=== PATIENT | female | born 1975 | race Hispanic/Latino ===

== ENCOUNTER 2017-10-29 20:21 | Inpatient (IN) | payer BC ==
--- NOTE | 2017-10-29 20:57 | ED PDOC ---
Arrival/HPI - General Time Seen by Provider: 10/29/17 20:29 Historian: Patient, Family (mother) - History of Present Illness Narrative History of Present Illness (Text): 10/29/17 20:53 42 year old female, whose past medical history includes asthma, who presents to the Emergency department with ETOH abuse. Patient's mother states she couldn't get ahold of the patient and went to check on her. When the patient did not open the door, patient's mother called the police. Patient admits to drinking alcohol today. Full HPI/ROS limited due to alcohol intoxication. Time/Duration: Prior to Arrival Symptom Onset: Gradual Symptom Course: Unchanged Activities at Onset: Light Context: Home Past Medical History - Provider Review Nursing Documentation Reviewed: Yes Family/Social History - Physician Review Nursing Documentation Reviewed: Yes Family/Social History: Unknown Family HX Allergies/Home Meds Allergies/Adverse Reactions: Allergies No Known Allergies Allergy (Verified 10/29/17 20:37) Home Medications: Home Meds Medication Instructions Recorded Confirmed LORazepam [Ativan] 1 mg PO PRN PRN 10/29/17 10/29/17 Unknown Med 10/29/17 Review of Systems - Review of Systems Systems not reviewed;Unavailable: Intoxicated Physical Exam - Physical Exam Narrative Physical Exam (Text): 10/29/17 20:58 Gen: VS reviewed, confused. alert, well nourished, nontoxic, mild distress. ENT: normal pharynx. Eye: EOMI, PERRL. Neck: no JVD, supple, no adenopathy. CV: tachycardiac. regular rate, regular rhythm, no rubs, no murmur, no gallops, S1, S2, pulses equal and strong. Pulm: no distress, clear to auscultation, no wheeze, no rhonchi, breath sounds equal, no rales. Abd: soft, nontender, no guarding, no rebound, no rigidity, normal bowel sounds. Ext: no edema. Skin: good color, no rash, no cyanosis. Psych: limited secondary to confusion. Neuro: moves all 4 extremities. CN2-12 intact grossly, motor intact, sensation intact. Vital Signs Reviewed: Yes Vital Signs Temp Pulse Resp BP Pulse Ox 10/30/17 03:15 109 H 12 133/83 92 L 10/30/17 01:29 113 H 16 135/84 90 L 10/29/17 23:31 118 H 18 139/81 90 L 10/29/17 21:08 98.8 F 10/29/17 21:00 98.8 F 10/29/17 20:54 98.8 F 139 H 13 148/86 90 L Temperature: Afebrile Blood Pressure: Normal Pulse: Tachycardic Respiratory Rate: Normal Appearance: Positive for: Well-Appearing Pain Distress: None Mental Status: Positive for: Alert and Oriented X 3, Confused Medical Decision Making ED Course and Treatment: 10/29/17 21:02 Impression: 42 year old female presents to the Emergency department for ETOH abuse. Plan: -- EKG -- Labs -- Sodium Chloride -- POC Urine Test -- Reassess and disposition Progress Notes: 10/30/17 03:05 patient is more awake and alert, speech is clear, patient currently exhibits coherent thoughts. patient is still tachycardic despite ivf, will admit for observation and continuted supportive care 10/30/17 03:30 0330: admit accepted by dr. neal, it is agreed to extend the workup in the ED to include dimer, cpk, ct head. if dimer positive will follow up with cta to rule out pe. 10/30/17 04:56 CT Head reviewed, shows: IMPRESSION: No acute findings. 10/30/17 05:04 CT Angio Chest reviewed, shows: IMPRESSION: Normal chest CTA. No pulmonary embolism. - Lab Interpretations Lab Results: 10/29/17 21:18 10/29/17 21:18 Lab Results 10/30/17 03:20: D-Dimer, Quantitative 368 H 10/29/17 22:54: Urine Opiates Screen Negative, Urine Methadone Screen Negative, Ur Barbiturates Screen Negative, Ur Phencyclidine Scrn Negative, Ur Amphetamines Screen Negative, U Benzodiazepines Scrn Negative, U Oth Cocaine Metabols Negative, U Cannabinoids Screen Negative 10/29/17 21:18: Total Creatine Kinase 89 10/29/17 21:18: Sodium 144, Potassium 3.6, Chloride 103, Carbon Dioxide 20 L, Anion Gap 25 H, BUN 13, Creatinine 0.8, Est GFR ( Amer) > 60, Est GFR ( Non-Af Amer) > 60, Random Glucose 124 H, Calcium 8.7, Total Bilirubin 0.6, AST 42 H, ALT 32, Alkaline Phosphatase 83, Total Protein 8.8 H, Albumin 4.7, Globulin 4.1, Albumin/Globulin Ratio 1.1 10/29/17 21:18: Salicylates < 1 L, Acetaminophen < 10.0 L 10/29/17 21:18: TSH 3rd Generation 4.50, Alcohol, Quantitative 316 H* 10/29/17 21:18: Magnesium 2.5 H 10/29/17 21:18: WBC 10.1, RBC 5.73, Hgb 16.1 H, Hct 45.7, MCV 79.8 L, MCH 28.1, MCHC 35.2, RDW 14.7 H, Plt Count 416, MPV 10.0, Gran % 69.3 H, Lymph % (Auto) 24.5, [place] % (Auto) 5.8, Eos % (Auto) 0.1 L, Baso % (Auto) 0.3, Gran # 7.02 H, Lymph # (Auto) 2.5, [place] # (Auto) 0.6, Eos # (Auto) 0.0, Baso # (Auto) 0.03 - RAD Interpretation Radiology Orders: 10/30/17 03:19 HEAD W/O CONTRAST [CT] Stat 10/30/17 04:03 ANGIO CHEST PE PROTOCOL [CT] Stat - EKG Interpretation EKG Interpretation (Text): 10/29/17 21:03 2102: sinus tachycardia at 134 bpm, irbbb, prolonged qt, no acute sttw abn 10/29/17 23:49 radiation monitor: sinus tachy at 119 bpm 10/30/17 04:55 EXAM: CT Head Without Intravenous Contrast EXAM DATE/TIME: 10/30/2017 3:19 AM CLINICAL HISTORY: 42 years old, female; Signs and symptoms; Altered mental status/memory loss and other: ETOH; Additional info: Altered mentation TECHNIQUE: Axial computed tomography images of the head/brain without intravenous contrast. All CT scans at this facility use at least one of these dose optimization techniques: automated exposure control; mA and/or kV adjustment per patient size (includes targeted exams where dose is matched to clinical indication); or iterative reconstruction. COMPARISON: No relevant prior studies available. FINDINGS: Brain: No acute findings. No hemorrhage. No significant white matter disease. No edema. Ventricles: No acute findings. No ventriculomegaly. Bones/joints: No acute findings. No acute fracture. Soft tissues: No acute findings. Sinuses: No acute findings. No acute sinusitis. Mastoid air cells: No acute findings. No mastoid effusion. IMPRESSION: No acute findings. Interpreted by ED Physician: Yes - Medication Orders Current Medication Orders: Sodium Chloride (Sodium Chloride 0.9%) 1,000 mls @ 150 mls/hr IV .Q6H40M [facility] Last Admin: 10/29/17 21:21 Dose: 150 mls/hr eMAR Start Stop Document 10/29/17 21:21 CNR (Rec: 10/29/17 21:21 CNR [id number]) Intravenous Solution Start Date 10/29/17 Start Time 21:21 Sodium Chloride (Sodium Chloride 0.9%) 1,000 mls @ 150 mls/hr IV .Q6H40M [facility] Last Admin: 10/29/17 23:30 Dose: 150 mls/hr eMAR Start Stop Document 10/29/17 23:30 CNR (Rec: 10/29/17 23:30 CNR [id number]) Intravenous Solution Start Date 10/29/17 Start Time 23:30 - Scribe Statement The provider has reviewed the documentation as recorded by the Scribliat Yarbrough All medical record entries made by the Patrickibliat were at my direction and personally dictated by me. I have reviewed the chart and agree that the record accurately reflects my personal performance of the history, physical exam, medical decision making, and the department course for this patient. I have also personally directed, reviewed, and agree with the discharge instructions and disposition. Disposition/Present on Arrival - Present on Arrival Any Indicators Present on Arrival: No - Disposition Have Diagnosis and Disposition been Completed?: Yes Diagnosis: Alcohol intoxication, Tachycardia Disposition: HOSPITALIZED Disposition Time: 03:50 Patient Plan: Observation Patient Problems: Current Active Problems Problem Status Onset Alcohol intoxication Acute Tachycardia Acute Condition: STABLE
[2017-10-29] MEDS ORDERED: Sodium Chloride 0.9% 1,000 ML IV SCH ×2 (21:00→23:30)
[2017-10-29 21:32] LABS: BASO # 0.03 K/mm3 (0.0-2.0); BASO % 0.3 % (0.0-3.0); EOS % 0.1 % (1.5-5.0); GRAN # 7.02 (1.4-6.5); GRAN % 69.3 % (50.0-68.0); HEMOGLOBIN 16.1 g/dL (12.0-16.0); LYMPH # 2.5 (1.2-3.4); LYMPH % 24.5 % (22.0-35.0); MEAN CELL VOLUME 79.8 fl (80.0-105.0); MEAN CORPUSCULAR HEMOGLOBIN 28.1 pg (25.0-35.0); MEAN CORPUSCULAR HGB CONC 35.2 g/dl (31.0-37.0); MONO # 0.6 (0.1-0.6); MONO % 5.8 % (1.0-6.0); RBC 5.73 10^6/uL (3.5-6.1); RED CELL DISTRIBUTION WIDTH 14.7 % (11.5-14.5); WHITE BLOOD COUNT 10.1 10^3/ul (4.5-11.0)
[2017-10-29 21:41] LABS: ACETAMINOPHEN < 10.0 ug/ml (10.0-20.0); SALICYLATE < 1 mg/dL (2.0-20.0)
[2017-10-29 23:00] LABS: ALB/GLOB RATIO 1.1 (1.1-1.8); ALBUMIN 4.7 g/dL (3.0-4.8); ALT/SGPT 32 U/L (7-56); AST/SGOT 42 U/L (14-36); BLOOD UREA NITROGEN 13 mg/dL (7-21); CALCIUM 8.7 mg/dL (8.4-10.5); GFR NON-AFRICAN AMERICAN > 60
[2017-10-29 23:19] LABS: BARBITURATES, UR NEGATIVE (NEGATIVE); BENZODIAZEPINES, UR NEGATIVE (NEGATIVE); OPIATES, UR NEGATIVE (NEGATIVE); PHENCYCLIDINE, UR NEGATIVE (NEGATIVE)
--- NOTE | 2017-10-30 04:56 | CP.PCM.HP ---
History of Present Illness - History of Present Illness History of Present Illness: Kristofer Arguelles, PGY-1, Internal Medicine History and Physical for Dr. Barcenas CC: Alcohol Intoxication 42 year old female with past medical history of hyperlipidemia, anxiety, and asthma presents to the emergency department after being found intoxicated this yesterday afternoon. Mother is by bedside and reports that she called the patient who had not responded for 2 days. Mother found patient passed out in her home and called 911. Patient was brought to the emergency department subsequently. On presentation, patient does not remember the sequence of events that led to her arrival at the hospital. Patient reports that does not remember how many drinks she had yesterday and that the last thing she remembered was getting into EMS. Patient reports heart palpitations, shortness of breath, and dizziness. Patient reports not having thought to hurt herself or others. Patient denies chest pain, wheezing, cough, headache, fever, dysuria, hematuria , numbness/tingling, abdominal pain, nausea, vomiting, constipation, diarrhea. 12-point ROS was negative except for what was mentioned above. PMH: as stated above PSH: 2 pneumothorax with chest tube placement Allergies: NKDA FMHx: father from kidney cancer. also had a history of CABG. Mother has a history of diabetes, hypertension, and hypothyroidism. Mother is living. Social history: Patient denies smoking or recreational drug use. Patient reports binge drinking once a week. PMD: Dr. Wei Pharm: [facility] [address] Insurance: [employer] Present on Admission - Present on Admission Any Indicators Present on Admission: No History of DVT/PE: No History of Uncontrolled Diabetes: No Review of Systems - Constitutional Constitutional: absent: Chills, Fever, Headache - EENT Eyes: absent: Change in Vision Ears: absent: Decreased Hearing - Cardiovascular Cardiovascular: Palpitations. absent: Chest Pain, Dyspnea on Exertion - Respiratory Respiratory: Dyspnea. absent: Cough - Gastrointestinal Gastrointestinal: absent: Abdominal Pain, Constipation, Diarrhea, Nausea, Vomiting - Genitourinary Genitourinary: absent: Change in Urinary Stream, Dysuria, Hematuria - Musculoskeletal Musculoskeletal: absent: Abnormal Gait - Neurological Neurological: Dizziness. absent: Numbness, Tingling, Vertigo - Psychiatric Psychiatric: Anxiety Past Patient History - Past Social History Smoking Status: Light Smoker < 10 Cigarettes Daily - PSYCHIATRIC Hx Psychophysiologic Disorder: Yes Hx Anxiety: Yes Hx Substance Use: No - SURGICAL HISTORY Hx Surgeries: No - ANESTHESIA Hx Anesthesia: Yes Meds Allergies/Adverse Reactions: Allergies Allergy/AdvReac Type Severity Reaction Status Date / Time No Known Allergies Allergy Verified 10/29/17 20:37 Physical Exam - Constitutional Appears: Well, Non-toxic, Agitated - Head Exam Head Exam: ATRAUMATIC, NORMOCEPHALIC - Eye Exam Eye Exam: EOMI, PERRL (pupils dilated) - ENT Exam ENT Exam: Mucous Membranes Moist - Respiratory Exam Respiratory Exam: Clear to Auscultation Bilateral, NORMAL BREATHING PATTERN - Cardiovascular Exam Cardiovascular Exam: Tachycardia, REGULAR RHYTHM, RRR - GI/Abdominal Exam GI & Abdominal Exam: Normal Bowel Sounds, Soft - Extremities Exam Extremities exam: Positive for: full ROM, normal inspection - Neurological Exam Neurological exam: Alert, CN II-XII Intact, Oriented x3 - Psychiatric Exam Psychiatric exam: Anxious - Skin Skin Exam: Dry, Intact, Normal Color Results - Vital Signs Recent Vital Signs: Last Vital Signs Temp 98.8 F 10/29/17 21:08 Pulse 109 H 10/30/17 03:15 Resp 12 10/30/17 03:15 BP 133/83 10/30/17 03:15 Pulse Ox 92 L 10/30/17 03:15 - Labs Result Diagrams: 10/29/17 21:18 10/29/17 21:18 - Impressions Impression: Sinus tachycardia, left posterior fascicular block Vent rate: 134 PO: 116 QRS:100 QTc:480 Assessment & Plan - Assessment and Plan (Free Text) Assessment: 42 year old female with past medical history of hyperlipidemia, anxiety, and asthma presents to the emergency department after being found intoxicated this yesterday afternoon. Patient will be admitted for tachycardia Plan: Alcoholic Intoxication -CIWA protocol initiated. -Head CT: no acute abnormalities -Alcohol serum stat, amylase, lipase, TSH, T4, lipid panel, PT/PTT ordered for evaluation of underlying disease. -Aspiration precautions -Intake and output as per alcohol withdrawal protocol -Neurocheck Q4 -Regular diet -Seizures precautions PRN -Banana bag, librium, clonidine, valium, haldol, lactated ringer at 125 cc/hr, multivitamin, thiamine, and trazodone given per alcohol withdrawal protocol. Respiratory distress 2/2 to asthma vs. panic attack -O2 stat: 92% on 2L NC -RR: 12 -Anion gap: 21 -Delta/delta: 9/4 -ABG shock panel ordered. -Duonebs PRN Sinus tachycardia 2/2 to alcohol withdrawal vs. anxiety -HR: 139 down to 109. -Patient to be placed on tele. -Patient complaining of heart palpitations. -EKG: sinus tachycardia at 134. -Repeat EKG. -Troponin level, TSH, T4 ordered. -Routine CBC, CMP -Dr. Swati Lazar, psychiatry, called for recommendations. Hemoconcentration -Hgb: 16.1 -IV lactated ringer fluid at 125cc/hr Elevated D-Dimer -D-dimer: 368 -CTA: no acute findings GI prophylaxis: protonix 40 mg daily DVT prophylaxis: lovenox 40 mg daily Patient plan discussed with Dr. Barcenas. - Date & Time Date: 10/30/17 Time: 05:32
[2017-10-30] MEDS ORDERED: Lactated Ringer's 1,000 ML IV SCH (06:00)
[2017-10-30] MEDS: Folic Acid 1 MG, Thiamine 100 MG, Multivitamin (MVI) 10 ML in Dextrose 5% In Water 1,00... IV SCH ×2 (06:29→19:45)
[2017-10-30 06:34] LABS: URINE BILIRUBIN NEGATIVE (NEGATIVE); URINE BLOOD MODERATE (NEGATIVE); URINE GLUCOSE (UA) NEGATIVE (NEGATIVE); URINE LEUKOCYTE ESTERASE NEGATIVE Leu/uL (NEGATIVE); URINE PROTEIN 100 mg/dL (<30 mg/dL); URINE UROBILINOGEN 0.2 E.U./dL (<1 E.U./dL)
[2017-10-30 06:37] LABS: URINE APPEARANCE SL CLOUDY (CLEAR); URINE COLOR YELLOW (YELLOW)
[2017-10-30 06:38] LABS: INR 1.16; PARTIAL THROMBOPLASTIN TIME 27.8 Seconds (25.1-36.5); PROTHROMBIN TIME 13.4 SECONDS (9.4-12.5)
[2017-10-30 06:42] LABS: HEMOGLOBIN 14.6 g/dL (12.0-16.0); MEAN CORPUSCULAR HEMOGLOBIN 27.8 pg (25.0-35.0); MEAN CORPUSCULAR HGB CONC 34.7 g/dl (31.0-37.0); MEAN PLATELET VOLUME 9.6 fl (7.0-11.0); RBC 5.26 10^6/uL (3.5-6.1); RED CELL DISTRIBUTION WIDTH 14.6 % (11.5-14.5); WHITE BLOOD COUNT 11.9 10^3/ul (4.5-11.0)
[2017-10-30 06:49] LABS: URINE WBC 0 - 2 /hpf (0-6)
[2017-10-30 06:50] LABS: URINE BACTERIA OCC (NEG); URINE EPITHELIAL CELLS 0 - 2 /hpf (0-5)
[2017-10-30 06:59] LABS: AMYLASE 69 U/L (35-125); BLOOD UREA NITROGEN 10 mg/dL (7-21); CALCIUM 7.9 mg/dL (8.4-10.5); GFR NON-AFRICAN AMERICAN > 60; LIPASE 130 U/L (23-300)
[2017-10-30 06:59] LABS: ARTERIAL BLOOD GAS HCO3 19.5 mmol/L (21-28); ARTERIAL BLOOD GAS O2 SAT 97.8 % (95-98); ARTERIAL BLOOD GAS PCO2 28 mm/Hg (35-45); ARTERIAL BLOOD GAS PH 7.45 (7.35-7.45); ARTERIAL BLOOD GAS TCO2 20.4 mmol.L (22-28)
[2017-10-30 07:05] LABS: TROPONIN I < 0.01 ng/mL
[2017-10-30 07:09] LABS: FREE T4 1.02 ng/dL (0.78-2.19)
[2017-10-30] MEDS: Albuterol-Ipratrop 3 mg / 0.5 (3 ml) UD IH SCH ×3 (08:03→20:11)
--- NOTE | 2017-10-30 08:21 | CT ---
Date of service: 10/30/2017 PROCEDURE: CT HEAD WITHOUT CONTRAST. HISTORY: altered mentation COMPARISON: None available. TECHNIQUE: Axial computed tomography images were obtained through the head/brain without intravenous contrast. Radiation dose: Total exam DLP = 935 mGy-cm. This CT exam was performed using one or more of the following dose reduction techniques: Automated exposure control, adjustment of the mA and/or kV according to patient size, and/or use of iterative reconstruction technique. FINDINGS: HEMORRHAGE: No intracranial hemorrhage. BRAIN: No mass effect or edema. No atrophy or chronic microvascular ischemic changes. VENTRICLES: Unremarkable. No hydrocephalus. CALVARIUM: Unremarkable. PARANASAL SINUSES: Unremarkable as visualized. No significant inflammatory changes. MASTOID AIR CELLS: Unremarkable as visualized. No inflammatory changes. OTHER FINDINGS: The report concurs with the preliminary [facility] report IMPRESSION: No acute findings
--- NOTE | 2017-10-30 08:24 | CT ---
Date of service: 10/30/2017 PROCEDURE: CT Chest with contrast (Pulmonary Angiogram) HISTORY: pulmonary embolism COMPARISON: None available. TECHNIQUE: Axial computed tomography images were obtained of the chest in the pulmonary arterial phase of enhancement. Coronal and sagittal reformatted images were created and reviewed. Intravenous contrast dose: 144 cc of Omni 350 Radiation dose: Total exam DLP = 396 mGy-cm. This CT exam was performed using one or more of the following dose reduction techniques: Automated exposure control, adjustment of the mA and/or kV according to patient size, and/or use of iterative reconstruction technique. FINDINGS: PULMONARY ARTERIES: Unremarkable. No pulmonary embolism. AORTA: No acute findings. No thoracic aortic aneurysm. LUNGS: Unremarkable. No nodule, mass or pulmonary consolidation. PLEURAL SPACES: Unremarkable. No effusion or pneumothorax. HEART: Unremarkable. No cardiomegaly. No significant pericardial effusion. LYMPH NODES: No lymphadenopathy. BONES, CHEST WALL: Unremarkable. No fracture or destructive lesion OTHER FINDINGS: The report concurs with the preliminary [facility] report IMPRESSION: Unremarkable CT pulmonary angiogram. No pulmonary embolus.
[2017-10-30 08:28] VITALS: BMI 30.1
[2017-10-30] MEDS ORDERED: Pneumococcal 23-Valent Vaccine IM ONE (08:28)
[2017-10-30] MEDS: Enoxaparin 40 mg Syringe SC SCH (09:18)
[2017-10-30 11:21] LABS: VENOUS BLOOD GAS PO2 51 mm/Hg (30-55); VENOUS BLOOD PH 7.45 (7.32-7.43)
--- NOTE | 2017-10-30 11:35 | CARD ---
APPROVED REPORT Date of service: 10/29/2017 EKG Measurement Heart [id number] <Conclusion> Sinus tachycardia Incomplete right bundle branch block Left posterior fascicular block Abnormal ECG
--- NOTE | 2017-10-30 13:32 | HP ---
Copied To: Ru Medellin MD Attending MD: Ru Medellin MD LOCATION: The patient is in [facility] in [place] in room 260, bed 1. HISTORY OF PRESENT ILLNESS: The patient was admitted this morning. She was found by her mother to be in an unresponsive state, due to overuse of alcohol. The patient has past history of anxiety and depression. She also has history of asthma. The patient was brought in by the ambulance to Emergency Room where she was evaluated by physician and the patient did have routine studies, blood work, chest x-ray, CT scan of the head. The patient was conscious, but complained of severe dizziness, numbness, tingling of her extremities. The patient also complained of tachycardia, palpitations. PAST MEDICAL HISTORY: The patient has significant past history. She has been treated for endometriosis. She states she has had 2 episodes of pneumothorax secondary to possibly endometrial deposits in the pleural space. The patient also has history of depression and she says that she does not abuse alcohol and in the past, she has not had any problem with alcohol , but for some reason, she took too many drinks last night. PHYSICAL EXAMINATION: GENERAL: The patient is pleasant and comfortable, but complains of the tingling and numbness and dizziness. VITAL SIGNS: Originally the heart rate was 130. The patient's heart rate is 98 today, blood pressure 130/82, respirations are 20. The patient's O2 sat is 94% on room air. HEENT: The head is normocephalic. NECK: The thyroid is not enlarged. The carotid pulses are present. JVP is flat. The patient has no lymphadenopathy in the neck. HEART: Normal sinus rhythm, sinus tachycardia. ABDOMEN: Soft. Liver and spleen nonpalpable, no tenderness, no masses, no distention. LUNGS: Trachea central. Breath sounds are vesicular. No adventitious sounds heard at this time. The respirations are normal. 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 LABORATORY DATA: The patient had blood work done in the Emergency Room showed a white count of 10,100. The patient's hemoglobin was 16.1, she was possibly dehydrated. Repeat CBC, hemoglobin is 14.6. The patient's chemistry, the GFR is within normal limits. The random sugar is 114. The patient's electrolytes, calcium is within normal limits, no abnormalities in the troponin. The patient's thyroid function study was done, the TSH is within normal range and the free T4 is within normal range. The patient had IV fluids started. The patient was treated with mild sedation. MEDICATIONS: The patient's past medications consists of Desyrel 50 mg at night; the patient was taking albuterol for asthma. The patient is currently on folic acid and vitamins. The patient is also getting Librium for anxiety and alcohol withdrawal. The patient is treated with Lovenox 40 mg subcutaneously for prophylaxis for deep vein thrombosis. The patient's clinical condition is acute. The patient will be treated for alcoholic intoxication. We will follow up. Ru Medellin MD MTDD
[2017-10-30 14:29] LABS: VENOUS BLOOD GAS BASE EXCESS -4.7 mmol/L (0.0-2.0); VENOUS BLOOD GAS PO2 39 mm/Hg (30-55); VENOUS BLOOD PH 7.38 (7.32-7.43)
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
[2017-10-31] MEDS: Albuterol-Ipratrop 3 mg / 0.5 (3 ml) UD IH SCH (01:16)
[2017-10-31] MEDS: Folic Acid 1 MG, Thiamine 100 MG, Multivitamin (MVI) 10 ML in Dextrose 5% In Water 1,00... IV SCH (05:04)
[2017-10-31] MEDS ORDERED: Levalbuterol 1.25 MG/3 ML Inhal Soln UD IH PRN (05:34)
[2017-10-31 06:25] LABS: BASO # 0.03 K/mm3 (0.0-2.0); BASO % 0.3 % (0.0-3.0); EOS % 0.2 % (1.5-5.0); GRAN # 7.8 (1.4-6.5); GRAN % 72.4 % (50.0-68.0); LYMPH # 2.1 (1.2-3.4); LYMPH % 19.9 % (22.0-35.0); MEAN CELL VOLUME 80.7 fl (80.0-105.0); MEAN CORPUSCULAR HEMOGLOBIN 27.6 pg (25.0-35.0); MEAN CORPUSCULAR HGB CONC 34.1 g/dl (31.0-37.0); MEAN PLATELET VOLUME 10.4 fl (7.0-11.0); MONO # 0.8 (0.1-0.6); MONO % 7.2 % (1.0-6.0); RBC 5.08 10^6/uL (3.5-6.1); RED CELL DISTRIBUTION WIDTH 14.2 % (11.5-14.5); WHITE BLOOD COUNT 10.8 10^3/ul (4.5-11.0)
[2017-10-31 06:53] LABS: LDL CHOLESTEROL 70 mg/dL (0-129)
[2017-10-31 07:08] LABS: ALB/GLOB RATIO 1.2 (1.1-1.8); ALBUMIN 3.9 g/dL (3.0-4.8); ALT/SGPT 30 U/L (7-56); AST/SGOT 32 U/L (14-36); BILIRUBIN,DIRECT 0.2 mg/dL (0.0-0.4); BLOOD UREA NITROGEN 4 mg/dL (7-21); CALCIUM 8.7 mg/dL (8.4-10.5); GFR NON-AFRICAN AMERICAN > 60; HDL CHOLESTEROL 58 mg/dL (29-60)
[2017-10-31] MEDS: Pantoprazole 40 mg EC Tab PO SCH (08:01)
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
[2017-10-31] MEDS ORDERED: Potassium Chloride 20 mEq ER Tab PO ONE (08:15)
[2017-10-31] MEDS ORDERED: Potassium Phosphate 15 MMOLE in Dextrose 5% In Water 250 ML IVPB ONE (08:15)
[2017-10-31] MEDS ORDERED: Metoprolol 1 mg/ml Inj IVP ONE (08:20)
[2017-10-31] MEDS: Enoxaparin 40 mg Syringe SC SCH (09:50)
--- NOTE | 2017-10-31 11:23 | PN ---
Copied To: Sameer Masterson MD Attending MD: Sameer Masterson MD DATE: 10/31/2017 CARDIOLOGY FOLLOWUP SUBJECTIVE: The patient is awake, alert without shortness of breath. PHYSICAL EXAMINATION: VITAL SIGNS: Blood pressure is 144/100, heart rate is 100. NECK: Negative JVD. LUNGS: Without rales. HEART: Reveals S1, S2. EXTREMITIES: Without edema. LABORATORY DATA: Hemoglobin is 14. Chemistries, BUN and creatinine are normal, potassium is 3.1. IMPRESSION: 1. Status post alcoholic binge. 2. Hypertension. 3. Sinus tachycardia, which has much improved. 4. Hypokalemia, which has been replaced. Given these findings, I have discussed with the patient about the potential effects of her alcohol binges on her heart. We will obtain an echocardiogram to evaluate her LV function. We will discontinue telemetry today. Sameer Masterson MD
--- NOTE | 2017-10-31 12:51 | PN ---
Copied To: Diego Barcenas MD Attending MD: Diego Barcenas MD DATE: 10/31/2017 SUBJECTIVE: The patient is seen lying in the bed in room 260 bed 2. Patient is alert, awake, responsive.. Overnight nurses' notes were reviewed. The patient slept well. OBJECTIVE: VITAL SIGNS: T-max 98.4. Telemetry shows heart rate in 120s and 110s. Blood pressure is elevated at 144/100, 143/102, 162/96. Respirations 20, O2 sat 97% on room air. HEENT: Head examination, normocephalic and atraumatic. HEENT examination shows pink conjunctivae. Anicteric sclerae. No oropharyngeal lesion. Dry oral mucosa. No neck rigidity. CHEST: Examination symmetrical. LUNGS: Examination shows no rales, crackles or wheezing. CARDIOVASCULAR: S1, S2, tachycardic rhythm. ABDOMEN: Soft. Mild epigastric periumbilical tenderness. No rebound tenderness. No guarding. No rigidity. Costovertebral angle tenderness negative. GENITALIA: Female. RECTAL: Deferred. EXTREMITIES: Shows no pitting edema, no calf tenderness, Homans' sign positive. SKIN: Multiple skin tattoos noted. MUSCULOSKELETAL: Examination shows elevated body mass index of 30. No asterixis noted. Gait examination is not tested. DIAGNOSTICS: 10/31/2017, WBC 10.8, hemoglobin/hematocrit 14 and 41, platelet 296. Granulocytes 73. Sodium 139, potassium 3.1, chloride 100, CO2 23, anion gap 19, BUN 4, creatinine 0.6. GFR greater than 60, glucose 132, lactic acid is 4.7 on chemistry and 6.1 yesterday on VBG, calcium 8.7, phosphorus 2.1, magnesium 2. LFTs are normal. Triglyceride 210, cholesterol 159, LDL 70, HDL 58, TSH 3.1, and 4.5. Amylase, lipase are normal. IMPRESSION AND PLAN: 1. Alcohol dependence and alcohol use disorder with alcohol intoxication and alcohol withdrawal. 2. History of asthma. 3. Sinus tachycardia. 4. Elevated d-dimer, etiology undetermined. 5. History of anxiety. 6. History of major depression. 7. History of hyperlipidemia. 8. History of spontaneous pneumothorax on the right side. 9. History of chest tube placement. 10. History of endometriosis. 11. Hypertension. 12. Tachycardia. 13. History of generalized anxiety disorder, history of binge drinking disorder. 14. Transient leukocytosis and granulocytosis. 15. Elevated d-dimer. 16. Lactic acidosis, probably secondary to alcohol withdrawal. 17. Hypokalemia. 18. Proteinuria, ketonuria, microscopic hematuria, bacteriuria. 19. Incomplete right bundle-branch block. PLAN: At this time, the patient has been ordered hepatitis serologies, repeat CMP, lactic acid, LFT, magnesium, phosphorus, HIV, CBC ordered. Consultation with Cardiology and Neurology. CURRENT MEDICATIONS: Ativan 2 mg IV every 6 hours p.r.n., Cardizem CD 180 mg daily, clonidine 0.1 mg every 8 hours x6 doses, trazodone 50 mg at bedtime p.r.n., folic acid 1 mg daily, potassium 40 mEq dose ordered, Librium 50 mg every 6 hours. The patient is on Lovenox 40 mg subcu daily; potassium phosphate, ordered for IV rider; Protonix 40 daily; Prozac 40 mg daily; multivitamin 1 tablet daily; thiamine 100 mg p.o. daily; Xopenex 0.63 mg every 6 hours scheduled ordered. The patient will be ordered out of bed to chair. DVT, GI prophylaxes ordered with Lovenox. Patient is on Zofran 4 IV every 6 hours. Repeat EKG ordered. Echo with Doppler ordered. The patient is on regular diet, the patient has been ordered. The patient has been updated about her condition, diagnosis, treatment plan, management plan at length. All questions concerned answered, which she acknowledged to understand. The patient has been counseled about cessation of smoking and alcoholism. The patient has been ordered out of bed. SCDs, DVT ordered. At present, the patient's further management will be dependent upon the patient's clinical condition, hemodynamic status and as per the patient response to therapeutic intervention, as per the patient's diagnostic test results and as per recommendation of all the physicians involved in the care of the patient. Dictated and electronically signed, not read. Diego Barcenas MD
[2017-10-31] MEDS: Levalbuterol 1.25 MG/3 ML Inhal Soln UD IH SCH ×2 (13:25→19:51)
[2017-10-31] MEDS: Multivitamin With Minerals Tab PO SCH (15:47)
[2017-10-31] MEDS: diltiaZEM 180 mg/24 Hours CD Cap PO SCH (15:47)
[2017-10-31 17:31] LABS: HEPATITIS B SURFACE AG Negative (NEGATIVE)
[2017-10-31 17:36] LABS: HEPATITIS A IGM NEGATIVE (NEGATIVE); HEPATITIS B CORE AB NEGATIVE (NEGATIVE)
[2017-10-31 17:48] LABS: HEPATITIS C ANTIBODY NEGATIVE (NEGATIVE)
--- NOTE | 2017-10-31 23:28 | CARD ---
APPROVED REPORT Date of service: 10/31/2017 EKG Measurement Heart [id number] MD [id number] <Conclusion> Sinus tachycardia Possible Left atrial enlargement Rightward axis Incomplete right bundle branch block Borderline ECG
[2017-11-01] MEDS: Levalbuterol 1.25 MG/3 ML Inhal Soln UD IH SCH ×2 (01:05→07:13)
[2017-11-01 06:31] LABS: BASO # 0.05 K/mm3 (0.0-2.0); BASO % 0.7 % (0.0-3.0); EOS # 0.1 (0.0-0.7); EOS % 1.9 % (1.5-5.0); GRAN # 3.68 (1.4-6.5); GRAN % 52.5 % (50.0-68.0); HEMOGLOBIN 13.4 g/dL (12.0-16.0); LYMPH # 2.7 (1.2-3.4); LYMPH % 38.2 % (22.0-35.0); MEAN CORPUSCULAR HEMOGLOBIN 27.3 pg (25.0-35.0); MEAN CORPUSCULAR HGB CONC 33.3 g/dl (31.0-37.0); MEAN PLATELET VOLUME 10.5 fl (7.0-11.0); MONO # 0.5 (0.1-0.6); MONO % 6.7 % (1.0-6.0); RBC 4.9 10^6/uL (3.5-6.1); RED CELL DISTRIBUTION WIDTH 14.7 % (11.5-14.5)
[2017-11-01 07:05] LABS: ALB/GLOB RATIO 1.2 (1.1-1.8); ALBUMIN 3.7 g/dL (3.0-4.8); ALT/SGPT 28 U/L (7-56); AST/SGOT 28 U/L (14-36); BILIRUBIN,DIRECT 0.3 mg/dL (0.0-0.4); BLOOD UREA NITROGEN 11 mg/dL (7-21); CALCIUM 8.9 mg/dL (8.4-10.5); GFR NON-AFRICAN AMERICAN > 60
[2017-11-01] MEDS: Pantoprazole 40 mg EC Tab PO SCH (08:04)
--- NOTE | 2017-11-01 08:18 | PN ---
Copied To: Swati Lazar MD Attending MD: Swati Lazar MD DATE: 10/31/2017 SUBJECTIVE: The patient was admitted to the medical site for evaluation chest due to asthma and panic attacks, alcohol withdrawals as well as change in mental status. Please see admission notes for details of admission. Psych consult was called because the patient has history of depression and anxiety. This assembly instructions writer confirmed all medications and all meds were resumed. This assembly instructions writer recommended increase the dose of Librium, on what patient seems to be improving very much so. The patient was seen and examined today. The patient reported that she feels much better to compare with the time of admission. The patient reported that she slept well on Librium. The patient reported that she is able to sleep to compare with yesterday. The patient denies that she has any thoughts of harming herself or others. Denies intents or plan. Labs was within normal limits, and are reviewed. PHYSICAL EXAMINATION: VITAL SIGNS: Seems to be stable, but the patient still has tachycardia and blood pressure was elevated. Pulse is 104, blood pressure 136/95. MEDICATIONS: Reviewed. The patient is on Librium 50 mg every 6 hours scheduled; the patient is on clonidine, diltiazem, Lovenox, Prozac which was resumed yesterday. Patient is on Ativan, multivitamin, Zofran, Protonix, vitamins, vitamin B1 as well as trazodone 50 mg at the night time. LABORATORY DATA: Labs reviewed. Potassium 3.1, which is low. MENTAL STATUS EXAMINATION: The patient presented to be alert and oriented, seems to be comfortable. Mild tremor in the upper extremities. Fair eye contact. Mood described as "I feel better." Affect was constricted, but reactive, mood congruent. Thought process was coherent and goal directed. Thought content, the patient denied visual, auditory, or tactile hallucinations. Denied paranoid ideation. The patient does not present to be psychotic. Insight and judgment seems to be improving. Impulses are well controlled. IMPRESSION: As per history, major depressive disorder, also the patient has history of alcohol use disorder, binge drinking. PLAN: The patient was seen Dr. Michel Chowdhury in the community. All medications were confirmed and resumed. We will monitor the patient closely. Vital signs seem to be more stable, but still the patient has elevated blood pressure and tachycardia. We will follow up and advise accordingly. Thank you very much for letting me participate in care of your patient. Should you have any questions, give me a call back. Swati Lazar MD MTDKb
[2017-11-01] MEDS: Multivitamin With Minerals Tab PO SCH (09:21)
[2017-11-01] MEDS: diltiaZEM 180 mg/24 Hours CD Cap PO SCH (09:21)
--- NOTE | 2017-11-01 09:21 | CARD ---
APPROVED REPORT Date of service: 10/31/2017 EXAM: Two-dimensional and M-mode echocardiogram with Doppler and color Doppler. INDICATION Hypertension/HCVD Tachycardia 2D DIMENSIONS Left Atrium (2D)3.5 (1.6-4.0cm)IVSd1.0 (0.7-1.1cm) LVDd3.9 (3.9-5.9cm)PWd1.2 (0.7-1.1cm) LVDs2.6 (2.5-4.0cm)FS (%) 33.2 % LVEF (%)62.4 (>50%) M-Mode DIMENSIONS Aortic Root3.20 (2.2-3.7cm)Aortic Cusp Exc.1.50 (1.5-2.0cm) Aortic Valve AoV Peak Jgmlvyod494.0cm/Eric Peak GR.6mmHg Mitral Valve MV E Ilhvrdem88.6cm/sMV A Sgevnsqa79.5cm/sE/A ratio0.9 TDI Lateral E' Peak V10.10cm/sMedial E' Peak V8.97cm/sE/Lateral E'6.9 E/Medial E'7.8 Pulmonary Valve PV Peak Lnrlvwbz72.6cm/sPV Peak Grad.2mmHg Tricuspid Valve TR Peak Wcdcixdf850nr/sRAP BIKMBERC89qpPoWQ Peak Gr.17mmHg [id number] LEFT VENTRICLE The left ventricular function is normal. The left ventricular ejection fraction is within the normal range. RIGHT VENTRICLE The right ventricle is normal size. ATRIA The left atrium size is normal. The right atrium size is normal. AORTIC VALVE The aortic valve is thickened but opens well. MITRAL VALVE The mitral valve is thickened but opens well. Mitral regurgitation is mild. TRICUSPID VALVE The tricuspid valve leaflets are thickened , but open well. There is trace to mild tricuspid regurgitation. There is no pulmonary hypertension. PULMONIC VALVE The pulmonary valve is normal in structure. <Conclusion> Good LV function Mild MR No MVP noted Mild TR No pulmoanry hypertension
[2017-11-01] MEDS: Enoxaparin 40 mg Syringe SC SCH (09:22)
--- NOTE | 2017-11-01 10:33 | PN ---
Copied To: Sameer Masterson MD Attending MD: Sameer Masterson MD DATE: 11/01/2017 SUBJECTIVE: The patient is comfortable in bed, without distress. PHYSICAL EXAMINATION: VITAL SIGNS: Blood pressure 115/80, the heart rate is 88, normal sinus rhythm. NECK: Negative JVD. LUNGS: Without rales. HEART: S1, S2. EXTREMITIES: Without edema. LABORATORY DATA: Hemoglobin is 13.4. Chemistries, potassium is 3.8, magnesium is 2.3. Echocardiogram reveals good LV function without evidence of a cardiomyopathy. IMPRESSION: 1. Alcohol withdrawal. 2. Sinus tachycardia and possible supraventricular tachycardias in the past. 3. Hypokalemia, which is now resolved. Given these findings, we will discontinue telemetry today. We will discontinue her Cardizem. No further cardiac workup is necessary at this time. Sameer Masterson MD
--- NOTE | 2017-11-01 14:15 | PN ---
Copied To: Diego Barcenas MD Attending MD: Diego Barcenas MD DATE: 11/01/2017 SUBJECTIVE: The patient is seen lying in the bed in room 260, bed 2. The patient is still complaining of some anxiety and shakiness. According to the nurses' notes, the patient slept. The patient was found to be anxious and crying also. PHYSICAL EXAMINATION: VITAL SIGNS: Telemetry shows sinus rhythm. T-max is 97.6, heart rate averaging in low 100s, 110, 120s, 99, 107, 100, 99. Telemetry shows sinus rhythm, sinus tachycardia. Blood pressure 115/79, 115/76. Yesterday's blood pressure 133/92, 144/100, 144/103, 162/96, respiration 20, O2 sat 97%. HEAD: Normocephalic, atraumatic. HEENT examination shows pink conjunctivae. Anicteric sclerae. No oropharyngeal lesion. No neck rigidity. CHEST: Symmetrical. LUNGS: Shows no rales, crackles or wheezing. CARDIOVASCULAR: S1, S2, regular rhythm. ABDOMEN: Soft. Positive bowel sounds. No hepatosplenomegaly noted. No costovertebral angle tenderness. GENITALIA: Female. RECTAL: Deferred. EXTREMITIES: Shows no pitting edema, no calf numbness, no Homans' sign. NEUROLOGIC: The patient is alert, awake, oriented x3. Cranial nerves II-XII intact. The patient is able to stand up without assistance from lying position. Gait examination is not tested. VASCULAR: Palpable pulses. PSYCHIATRIC: Positive for anxiety. DIAGNOSTICS: On 11/01/2017: CBC shows a WBC of 7, hemoglobin/hematocrit 13.4 and 40.2, platelet 251. Chemistry, sodium 139, potassium 3.8, chloride 102, CO2 of 26, anion gap 15, BUN 11, creatinine 0.7, GFR greater than 60, glucose 97, lactic acid is 1.6, calcium 8.9, phosphorus 3.1, magnesium 2.3. LFTs are normal. The patient's EKG and echocardiogram results were reviewed. IMPRESSION AND PLAN: 1. Alcohol use disorder with alcohol withdrawal. 2. History of generalized anxiety disorder and major depressive disorder and with alcohol use disorder and alcohol binge drinking. 3. History of panic disorder. 4. Tachycardia. 5. Hypertension. 6. Leukocytosis and granulocytosis. 7. Hypokalemia. 8. Transient lactic acidosis. 9. Hypertriglyceridemia. 10. Proteinuria, ketonuria, microscopic hematuria, bacteriuria 11. Acute alcohol intoxication on admission. 12. Mild mitral regurgitation and tjtxj-oh-xais tricuspid regurgitation with left ventricular ejection fraction of greater than 60%. 13. Incomplete right bundle-branch block with right axis deviation. 14. Left posterior fascicular block and incomplete right bundle-branch block. 15. Alcohol withdrawal. PLAN: At this time, the patient will be observed on telemetry. The patient will be continued on an Ativan 2 mg IV every 6 hours p.r.n., clonidine 0.1 mg every 8 hours for total of 6 doses, trazodone 50 mg at bedtime p.r.n., folic acid 1 mg daily. Librium is at 50 mg p.o. every 6 hours, Lovenox 40 subcu daily for DVT prophylaxis. The patient has been ordered Protonix for GI prophylaxis, Prozac 40 mg daily, thiamine 100 mg daily, Xopenex nebulizer 0.63 mg every 6 hours, Zofran 4 mg IV every 6 hours p.r.n. incentive spirometry, oxygen 2 liters. The patient is on regular diet. Telemetry discontinued by Cardiology. The patient has been ordered out of bed, ANTIA stockings, SCDs. At present, the patient will be continued on the above therapeutic intervention. The patient will be considered for discharge once the patient's symptoms are resolved and the patient is stable for at least 24 hours without any symptoms of withdrawal. Dictated and electronically signed, not read. Diego Barcenas MD
--- NOTE | 2017-11-01 18:51 | PN ---
Copied To: Swati Lazar MD Attending MD: Swati Lazar MD DATE: 11/01/2017 SUBJECTIVE: The patient was followed up and seen and examined today. The patient presented with improvement of his symptoms, alcohol withdrawal symptoms are much better. The patient has transient tremor in her upper extremities, but overall, the patient is doing much better. Vital signs are stable. Temperature 98, pulse is 94, blood pressure 116/78, respirations 20, and oxygen saturation is 97. MEDICATIONS: Reviewed. Librium 50 mg every 6 hours scheduled, Catapres, Lovenox, Prozac was resumed, folic acid, Xopenex, Ativan as needed. Most recent was from today. Multivitamin, Zofran, Protonix, and trazodone. As per the patient, the patient had very restless night and requested trazodone to be increased. We will do so. Collaterals from the nursing staff, the patient is calm and cooperative. No behavioral issues. MENTAL STATUS EXAMINATION: The patient presented to be alert and oriented, pleasant, cooperative. Hygiene is improving. Speech is normal rate, tone, quality, and quantity. Mood described as "I feel a little better." Affect was reactive, mood congruent. Thought process seems to be coherent and goal directed. Thought content, the patient denied visual, auditory, or tactile hallucinations. Denied paranoid ideation. The patient denied thoughts of harming herself or others. Denied intent or plan. Insight and judgment seem to be improving. Impulses are well controlled. IMPRESSION: Rule out substance-induced mood disorder. The patient has history of major depressive disorder and panic disorder, was seen by Dr. Michel Chowdhury. PLAN: Continue current management. Continue current medication. We will start tapering down Librium. Medications resumed. We will monitor closely and advise accordingly. Thank you very much for letting me to participate in the care of your patient. Should you have any questions, give me a call back. Swati Lazar MD
--- NOTE | 2017-11-01 19:19 | CARD ---
APPROVED REPORT Date of service: 11/01/2017 EKG Measurement Heart [id number] <Conclusion> Sinus rhythm with occasional premature ventricular complexes Rightward axis Incomplete right bundle branch block Prolonged QT Abnormal ECG
[2017-11-01] MEDS ORDERED: Levalbuterol 0.63 MG/3 ML Inhal Soln UD IH SCH (22:05)
[2017-11-01 22:08] VITALS: RESP 18
[2017-11-01] MEDS: Levalbuterol 0.63 MG/3 ML Inhal Soln UD IH SCH (22:14)
[2017-11-02] MEDS: Levalbuterol 0.63 MG/3 ML Inhal Soln UD IH SCH ×5 (02:01→19:45)
[2017-11-02] MEDS: Pantoprazole 40 mg EC Tab PO SCH (08:07)
[2017-11-02] MEDS ORDERED: Lactated Ringer's 1,000 ML IV SCH (10:15)
[2017-11-02] MEDS: Enoxaparin 40 mg Syringe SC SCH (10:19)
[2017-11-02] MEDS: Multivitamin With Minerals Tab PO SCH (10:20)
[2017-11-02 14:37] VITALS: BP 105/70; PULSE 87; TEMP 97.9; O2SAT 100
--- NOTE | 2017-11-02 15:09 | PN ---
Copied To: Swati Lazar MD Attending MD: Swati Lazar MD DATE: 11/02/2017 FOLLOWUP NOTE SUBJECTIVE: The patient was followed up today. The patient has history of depression and anxiety. The patient also has binge drinking alcohol problems. The patient was admitted for altered mental status and alcohol withdrawals symptoms. The patient was seen by this service writer on daily basis for the past week. The patient has stable improvement. Vital signs are within normal limits. The patient tolerated medications well. No side effects observed or reported. Psychotropic medications were confirmed by the patient's pharmacy. Please see initial note for more detailed information. The patient was followed up today. The patient presented to be alert and oriented, pleasant. The patient seems to be very regretful about her alcohol consumption. The patient said that she feels very ashamed of herself. Emotional support and empathic listening was provided. The patient was appreciative. The patient reported that she has been given information about AA meetings, NA meetings and she is willing to participate. The patient has followup appointment with Dr. Michel Chowdhury. The patient was advised to take medication as it was prescribed. The patient was also advised to discuss naltrexone or Revia with her psychiatrist. The patient verbalized the understanding. The patient denied any psychotic symptoms. Denied any wish to be . Denied suicidal ideations. Denied homicidal ideations. Vital signs are stable. Temperature 97.9, pulse is 87, blood pressure 105/70, respirations 18, oxygen saturation is 100. Medications reviewed. Librium was decreased to 50 mg three times day, Lovenox, Prozac 40 mg daily, folic acid, , multivitamin, Zofran, Protonix, thiamine, trazodone 100 mg at the nighttime. Labs reviewed, seems to be within normal limits, but most recent result was from yesterday. MENTAL STATUS EXAMINATION: The patient presented to be alert and oriented, pleasant, cooperative. Good eye contact. Speech was normal rate, tone, quality and quantity. Mood described, I am feeling better. Affect was constricted, at times tearful, but mood congruent. Thought process coherent and goal directed. Thought content, the patient denied visual, auditory or tactile hallucinations. Denied paranoid ideation. The patient denied thoughts of harming herself or others. Denied intent or plan. Insight and judgment fair. Impulses are well controlled. IMPRESSION: As per history, major depressive disorder; as per history, anxiety disorder; as per history, alcohol use disorder. PLAN: The patient has all of her prescriptions at home. The patient has followup appointment with Dr. Chucho Chowdhury. The patient pose no imminent danger to self or others. This service writer educated the patient about AA meetings as well as naltrexone treatment. This service writer will sign off. Should you have any questions, give me a call back. Swati Lazar MD
--- NOTE | 2017-11-03 02:46 | DS ---
Copied To: Diego Barcenas MD Attending MD: Diego Barcenas MD LOCATION: The patient is seen in room 560, bed 2. HISTORY OF PRESENT ILLNESS: The patient states that she is feeling significantly better since hospitalization. The patient denies any anxiety. Denies any depression. Denies any insomnia. The patient slept well overnight according to the nurses' notes. PHYSICAL EXAMINATION: VITAL SIGNS: T-max is 98; pulse 87, 71, 82; blood pressure 105/70, respiration 18, O2 sat 100%. HEENT: Head normocephalic, atraumatic. HEENT examination shows pink conjunctivae, anicteric sclerae. No oropharyngeal lesion. NECK: No neck rigidity. CHEST: Symmetrical. LUNGS: Shows no rales, crackles or wheezing. CARDIOVASCULAR: S1, S2, regular rhythm. ABDOMEN: Soft. Positive bowel sound. No hepatosplenomegaly noted. GENITALIA: Female. RECTAL: Examination is deferred. EXTREMITIES: Shows no pitting, no calf tenderness, no Homans sign. MUSCULOSKELETAL: Shows a body mass index of 30. NEUROLOGIC: The patient is alert, awake, oriented x3. Cranial nerves II through XII grossly intact. Motor strength is 5/5. Gait examination is independent. VASCULAR: Palpable pulses. DIAGNOSTICS STUDIES: None from today. Hepatitis A, B, C, and HIV serologies negative. The patient was seen by psychiatrist, cleared by Psychiatry for discharge. The patient's psychiatrist signed off the case. The patient is cleared for discharge by all subspecialty. FINAL IMPRESSION, PLAN AND DISCHARGE DIAGNOSIS: 1. Generalized anxiety disorder and major depressive disorder with alcohol use disorder and alcohol binge drinking. 2. History of panic disorder. 3. Tachycardia. 4. Hypertension. 5. Hypokalemia. 6. Transient lactic acidosis. 7. Hypertriglyceridemia. 8. Proteinuria, ketonuria, microscopic hematuria, bacteriuria. 9. Acute alcohol intoxication on admission. 10. Mild mitral regurgitation and trace to mild tricuspid regurgitation with left ventricular ejection fraction of greater than 60%. 11. Right axis deviation, incomplete right bundle-branch block and left posterior fascicular block. 12. Alcohol withdrawal (resolved). 13. Alcohol use disorder, major depressive disorder and anxiety disorder. 14. Elevated body mass index. 15. Transient leukocytosis with granulocytosis. At present, the patient was cleared by Cardiology, signed off by Psychiatry. The patient is to be discharged today. DISCHARGE MEDICATIONS: The patient is to resume her ProAir inhaler, BuSpar 20 mg twice a day, Cardizem CD 180 mg daily, new script. The patient is to resume her Prozac 10 mg daily, Advair discus 50/250 one puff twice a day, folic acid 1 mg daily, Ativan 1 mg p.r.n. CURRENT MEDICATIONS Trazodone 100 mg at bedtime p.r.n., folic acid 1 mg daily, Librium 50 mg three times a day p.r.n., Lovenox 40 mg subcu daily, Protonix 40 mg daily, multivitamin 1 tablet daily, thiamine 100 mg daily. The patient is on Xopenex nebulizer 0.63 mg . The patient is discharged home. DISCHARGE FOLLOWUP: With Dr. Barcenas within 1 week. Discharge followup with Dr. Michel Chowdhury, Psychiatry. The patient is to be followed up with Dr. Chowdhury in 1 week. The patient was advised to stop alcohol. The patient was advised to comply with medications and doctors followup. During this hospitalization, the patient was daily explained about her diagnosis, test results, recommendation by all physicians involved in the care of the patient at length and all questions and concerns answered. Time spent in the discharge process 45 minutes. Dictated and electronically signed, not read. Diego Barcenas MD
== END 2017-11-02 20:10 | disposition home or self-care (01) | DRG 897 ==
LOC: ED 20:21 → ERH 10-30 04:20 → 2RNO 10-30 07:03 → OBSVTOIN 10-31 08:39 → 5RNO 11-01 12:14
PROVIDERS: ADMIT Internal Medicine; ATTEND Internal Medicine
DX: F10.229 Alcohol dependence with intoxication, unspecified (principal); I45.2 Bifascicular block; E87.2 Acidosis; F10.239 Alcohol dependence with withdrawal, unspecified; Y90.4 Blood alcohol level of 80-99 mg/100 ml; I10 Essential (primary) hypertension; E87.6 Hypokalemia; F41.1 Generalized anxiety disorder; F32.9 Major depressive disorder, single episode, unspecified; I08.1 Rheumatic disorders of both mitral and tricuspid valves; E78.1 Pure hyperglyceridemia; E78.5 Hyperlipidemia, unspecified; F41.0 Panic disorder [episodic paroxysmal anxiety]; J45.909 Unspecified asthma, uncomplicated; R31.29 Other microscopic hematuria; Z80.51 Family history of malignant neoplasm of kidney; Z82.49 Family history of ischemic heart disease and other diseases of the circulatory system; Z83.3 Family history of diabetes mellitus; Z87.891 Personal history of nicotine dependence